=== PATIENT | female | born 1985 | race African-American/Black ===

== ENCOUNTER 2020-12-06 14:44 | Emergency (ER) | payer OTHER ==
[2020-12-06 14:48] VITALS: BP 115/77; PULSE 73; TEMP 98; BMI 21.4
[2020-12-06 16:22] LABS: BASO % 2.2 % (0-2.0); EOS % 0.2 % (0-4.5); HEMATOCRIT 35.6 % (32.4-45.2); HEMOGLOBIN 11.6 GM/dL (10.7-15.3); LYMPH % 41.4 % (8-40); MCH 25.2 pg (25.7-33.7); MCHC 32.6 g/dl (32.0-36.0); MEAN CELL VOLUME 77.2 fl (80-96); MEAN PLT VOLUME 8.4 fl (7.5-11.1); MONO % 11.8 % (3.8-10.2); NEUT % 44.4 % (42.8-82.8); PLATELET COUNT 235 10^3/uL (134-434); RBC 4.62 M/mm3 (3.60-5.2); RDW 15.2 % (11.6-15.6); WHITE BLOOD COUNT 4.6 K/mm3 (4.0-10.0)
[2020-12-06 16:43] LABS: CALCIUM 9.1 mg/dL (8.5-10.1)
[2020-12-06 16:44] LABS: ALBUMIN 4.4 g/dl (3.4-5.0); BLOOD UREA NITROGEN 18.5 mg/dL (7-18)
[2020-12-06 16:47] LABS: CREATININE 0.8 mg/dL (0.55-1.3)
[2020-12-06 16:49] LABS: BILIRUBIN,TOTAL 0.6 mg/dL (0.2-1); TOT PROT 8.4 g/dl (6.4-8.2)
[2020-12-06 16:51] LABS: URINE APPEARANCE CLEAR; URINE BILIRUBIN 1+ (NEGATIVE); URINE COLOR DK YELLOW; URINE GLUCOSE (UA) NEGATIVE (NEGATIVE); URINE KETONE 1+ (NEGATIVE); URINE LEUK ESTERASE NEGATIVE (NEGATIVE); URINE NITRITE NEGATIVE (NEGATIVE); URINE PROTEIN NEGATIVE (NEGATIVE)
== END 2020-12-06 16:50 | disposition home or self-care (01) ==
LOC: JER 14:44
DX: R20.2 Paresthesia of skin (principal)
CPT/HCPCS: 36415; 80053; 81003; 85025; 99284-25